=== PATIENT | female | born 1955 | race Caucasian/White ===

== ENCOUNTER 2024-09-16 09:23 | Emergency (ER) | payer MEDICARE, SELFPAY ==
--- NOTE | ~2024-09-16 | XR_ITS ---
EXAMINATION: XR shoulder RT min 2V, XR humerus RT DATE: 09/16/2024 10:35 INDICATION: Anterior right shoulder and arm pain post fall TECHNIQUE: 1. AP internally and externally rotated, AP oblique externally rotated and transscapular Y views of t he right shoulder were obtained. 2. AP and lateral views of the right humerus were obtained. COMPARISON: None FINDINGS: Normal alignment. No fracture.Mild right glenohumeral and acromioclavicular osteoarthritis. Joint sp car at the right elbow are relatively preserved with no evident elbow joint effusion. Soft tissues ar e unremarkable. Moderate thoracic spondylosis. Visualized portions of the lungs are clear. IMPRESSION: Mild osteoarthritis at the right shoulder. No acute osseous abnormality. Reviewed, dictated and finalized at location A. IMPRESSION: Mild osteoarthritis at the right shoulder. No acute osseous abnormality.
[2024-09-16 10:36] VITALS: BP 173/94; O2SAT 100
[2024-09-16 10:46] VITALS: BP 164/83; O2SAT 100
--- NOTE | 2024-09-16 10:59 | ED.GENADULT ---
HPI - General Adult General Chief complaint: Fall Stated complaint: FALL - 3 WEEKS AGO Time Seen by Provider: 09/16/24 09:55 History of Present Illness HPI narrative: 69-year-old female presented emergency department for evaluation of right shoulder pain. Patient reports she had a fall approximately 3 weeks ago did injure her right shoulder. Patient reports decreased mobility of that shoulder. Patient did have follow-up with her primary care physician referred to the emergency department for x-rays. Patient had negative x-rays of the shoulder and humerus. Related Data Allergies Allergy/AdvReac Type Severity Reaction Status Date / Time diclofenac Allergy Unknown Unknown Verified 10/01/23 11:00 erythromycin base Allergy Unknown Vomiting Verified 10/01/23 11:00 Review of Systems Review of Systems: All systems reviewed & are unremarkable except as noted in HPI and below PMFSH Past Medical History Medical History Chronic low back pain Family History Family History Grandparent Family history of malignant neoplasm Social History Social History Years smoked: 45 Smoking status: Never smoker Second hand tobacco smoke exposure: No Alcohol intake: never Substance use type: marijuana Other substance usage details: medical marijuana-edibles Lack of Transportation: No Lack of Food: Never True Current Housing: I Have Housing Concerned About Future Housing: No Difficulty Paying Gas/Electric Bills: No Difficulty Paying for Meds: No Currently Unemployed: No Education: High School Diploma/GED Difficulty w/ Childcare or Family Care: No Living arrangements: with family Occupation/Education: retired Exam Narrative: APPEARANCE: Well appearing, no pain, no distress, well-nourished. HEAD: normocephalic, atraumatic. EYES: PERRLA/EOMI, conjunctivae clear. NOSE: Normal no drainage EARS:TMS clear with good light reflex. THROAT: Pharynx clear, no exudate. NECK: Supple. No adenopathy, no masses. RESPIRATORY: Airway patent, respirations nonlabored. Clear to auscultation bilaterally, no rales, rhonchi, wheezing. CARDIOVASCULAR: Regular rate and rhythm without murmurs rubs or gallops. ABDOMINAL: Soft, nontender, nondistended, normal bowel sounds MUSCULOSKELETAL: Decreased mobility of right shoulder NEURO: Alert. Cranial nerves II through XII intact. Good gait. Good coordination SKIN: Warm, dry. Normal Color PSYCHIATRIC: Normal affect/mood. Course Vital Signs Vital signs: Vital Signs Blood Pressure 173/94 H 09/16/24 10:36 Pulse Oximetry 100 09/16/24 10:36 Temperature 97.6 F 09/16/24 11:16 Pulse Rate 78 09/16/24 11:16 Respiratory Rate 16 09/16/24 11:16 Blood Pressure 158/72 H 09/16/24 11:16 Pulse Oximetry 97 09/16/24 11:17 Medical Decision Making MDM Narrative Medical decision making narrative: 69-year-old female presenting ED for evaluation for right shoulder pain from a ground level fall approximately 3 weeks ago. X-rays were negative for acute fracture dislocation. Do suspect rotator cuff injury. Patient will be Saturday pouch sling for comfort in addition to some muscle relaxants. Patient states he does not want an outpatient MRI and declined any medications for pain control. 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 No acute osseous abnormality. Shoulder X-Ray 09/16/24 10:38 IMPRESSION: Mild osteoarthritis at the right shoulder. No acute osseous abnormality. Discharge Plan Discharge Clinical Impression: Injury of right shoulder Patient Disposition: Home, Self-Care Condition: Stable Instructions: Antibiotic Form, Rotator Cuff Injury (ED), How to Use a Sling (ED) Additional Instructions: Ibuprofen for pain control. Flexeril for muscle spasm. Pouch sling for comfort. You will need to have close follow-up with your primary care physician and with Orthopedics. When at rest remove the arm from the pouch sling in order to prevent frozen shoulder. You will also need outpatient physical therapy to help prevent frozen shoulder. Prescriptions: New cyclobenzaprine 10 mg tablet 10 mg PO BID PRN (Reason: muscle spasm) Qty: 14 0RF No Action cyclobenzaprine 10 mg tablet 10 mg PO TID PRN (Reason: muscle spasm) Qty: 30 0RF Follow-up/Referrals: Matilda Lockhart MD [Primary Care Provider] -
[2024-09-16 11:01] VITALS: BP 154/86; O2SAT 99
[2024-09-16 11:16] VITALS: BP 158/72; PULSE 78; RESP 16; TEMP 36.4; O2SAT 100
[2024-09-16 11:17] VITALS: O2SAT 97
== END 2024-09-16 11:40 | disposition home or self-care (01) ==
PROVIDERS: Emergency Provider Emergency Medicine; PCP Family Medicine
DX: S49.91XA Unspecified injury of right shoulder and upper arm, initial encounter (principal); X58.XXXA Exposure to other specified factors, initial encounter
CPT/HCPCS: 73030; 73060; 99283; A4565

== ENCOUNTER 2024-12-25 11:32 | Outpatient (CLI) | payer MEDICARE, SELFPAY ==
--- NOTE | ~2024-12-25 | MR_ITS ---
EXAMINATION: MR shoulder RT wo con DATE: 12/25/2024 12:11 INDICATION: Pain in right shoulder. TECHNIQUE: Magnetic resonance imaging (MRI) of the right shoulder was performed without intravenous c ontrast. Sequences included axial PD-weighted FS FSE, coronal oblique PD-weighted FS FSE and T2-weigh luis FS FSE, and sagittal oblique T2-weighted FS FSE and T1-weighted FSE. COMPARISON: Right shoulder radiographs 09/16/2024 FINDINGS: Coracoacromial arch: The acromion undersurface is flat in morphology (type I). There is moderate acromioclavicular joint o steoarthritis. There is mild subacromial/subdeltoid bursitis. Rotator cuff: There is severe supraspinatus and infraspinatus tendinopathy. Teres minor tendon is normal. There is mild subscapularis tendinopathy. There is no asymmetric fatty atrophy of the rotator cuff muscle rojo ies. Biceps tendon and glenoid labrum: Biceps tendon is in bicipital groove. Intra-articular biceps tendon is normal. There is degenerative tearing of superior glenoid labrum (SLAP tear). Fluid: There is a small glenohumeral joint effusion. Bones/cartilage: There is cartilage surface irregularity of glenoid and humeral head. IMPRESSION: 1. Severe rotator cuff tendinopathy. No tear. 2. Mild glenohumeral joint chondrosis. 3. Moderate acromioclavicular joint osteoarthritis. 4. Small glenohumeral joint effusion. 5. Mild subacromial/subdeltoid bursitis. Reviewed, dictated and finalized at location A. T SUPERINTENDENT
== END 2024-12-25 11:33 | disposition home or self-care (01) ==
LOC: MICIMG 11:33
PROVIDERS: PCP Family Medicine; Visit Provider Family Medicine
DX: M19.011 Primary osteoarthritis, right shoulder (principal); M75.31 Calcific tendinitis of right shoulder; M94.211 Chondromalacia, right shoulder; M25.411 Effusion, right shoulder; M75.51 Bursitis of right shoulder; W19.XXXA Unspecified fall, initial encounter
CPT/HCPCS: 73221

== ENCOUNTER 2025-06-16 06:56 | Outpatient (CLI) | payer MEDICARE, SELFPAY ==
--- NOTE | ~2025-06-16 | MR_ITS ---
MRI of the left shoulder Technique: Axial proton-density fat-sat images, coronal proton density fat-sat and T2 fat-sat images, and sagittal T1-weighted and T2 fat-sat images were acquired. Clinical History: Enthesopathy Findings: AC joint intact. Coracoclavicular, coracoacromial, and coracohumeral ligaments are intact. There is severe tendinosis of the supraspinatus tendon with mild fraying of the articular and bursal surfaces. No high-grade partial or full-thickness tear evident. Infraspinatus tendon is intact. Subsc apularis tendon intact with mild tendinosis. Tendon of long head of the biceps is intact. No definite labral tear evident. Inferior glenohumeral ligament is intact. No degenerative change or effusion of the glenohumeral join t. There is minimal fluid in the subacromial/subdeltoid bursa. No muscle atrophy or edema. Impression: Severe tendinosis of the supraspinatus tendon, with probable minimal fraying of the articular and bur [place]y surfaces. Minimal subacromial/subdeltoid bursitis. Reviewed, dictated and finalized at location . Impression: Severe tendinosis of the supraspinatus tendon, with probable minimal fraying of the articular and bursal surfaces. Minimal subacromial/subdeltoid bursitis.
== END 2025-06-16 06:57 | disposition home or self-care (01) ==
PROVIDERS: PCP Family Medicine; Visit Provider Orthopaedic Surgery
DX: M77.8 Other enthesopathies, not elsewhere classified (principal); M67.814 Other specified disorders of tendon, left shoulder; M75.52 Bursitis of left shoulder
CPT/HCPCS: 73221